=== PATIENT | female | born 1960 | race Caucasian/White ===

== ENCOUNTER → 2019-08-02 06:38 | Outpatient (CLI) | payer BC ==
[~2019-08-02 06:38] MED LIST: CO Q-10100 MG PO; PAXIL10 MG PO; VIC-FORTE CAPSUL1 MG PO
== END | disposition home or self-care (01) ==
LOC: D.OPS 06:38
PROVIDERS: ATTEND Family Medicine
DX: M21.072 Valgus deformity, not elsewhere classified, left ankle (principal); M21.42 Flat foot [pes planus] (acquired), left foot; M21.172 Varus deformity, not elsewhere classified, left ankle

== ENCOUNTER 2019-08-02 06:56 | Day surgery (SDC) | payer BC ==
[~2019-08-02] VITALS: Ht 172.7 cm; Wt 81.6 kg
--- NOTE | ~2019-08-02 | OP ---
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 PROCEDURES: 1. Left gastroc recession. 2. Left Harris calcaneal osteotomy. 3. Left Cotton osteotomy. ANESTHESIA: General with preoperative popliteal block per the anesthesia department. HEMOSTASIS: Left thigh tourniquet at 350 mmHg. PREOPERATIVE DETAILS: The patient was taken to the OR and placed on the operating table in a supine position followed by induction of general anesthesia. The left extremity was then prepped and draped in usual aseptic technique followed by exsanguination and inflation of tourniquet. PROCEDURE #1: Left gastroc recession: With the hip flexed and the knee extended, the left leg was elevated, giving access to the posterior aspect of the leg with the foot held in dorsiflexion. A 3 cm linear incision was made over the gastroc aponeurosis. The incision was deepened down bluntly through subcutaneous tissue being sure to avoid the sural nerve and vein. The peritenon was then exposed, linear incision was made and the aponeurosis was exposed. With the foot held in dorsiflexion, a V cut was made through the aponeurosis allowing adequate ankle dorsiflexion. Wound was flushed. The soft tissue was reapproximated and the skin was closed with skin shila. PROCEDURE #2: Left calcaneal Harris osteotomy. A 15-blade was used to create a 3 cm linear incision over the lateral wall of the anterior process of the calcaneus. The incision was deepened down through subcutaneous tissue. Dissection carried down to the peroneal tendons, which were freed and retracted in the wound. The lateral wall of the calcaneus was then exposed. A sagittal saw was used to create an osteotomy from lateral to medial. The osteotomy was distracted with Osteotome and mallet and sizers were then placed to determine the proper size of the bone graft. Sizer was deemed necessary to reduce the transverse plane dominant flat foot or calcaneal valgus, thus a 10 cm bone graft was placed in the osteotomy noting excellent realignment of the rearfoot. C-arm was used to verify good placement as well as alignment. The deep tissue was reapproximated with 2-0 Vicryl, the subcutaneous tissue with 4-0 Rapide and the skin was closed with 4-0 Rapide in a subcuticular technique followed by Dermabond. PROCEDURE #3: Left Cotton osteotomy. OPERATIVE REPORT [id number] BECCA GOLDBERG A 2 cm linear incision was made over the dorsal aspect of the medial cuneiform. The incision deepened down through subcutaneous tissue being sure to avoid the superficial nerves. Dissection was carried down to the periosteum where a linear periosteal incision was made. The periosteum was freed giving access to the dorsal aspect of the medial cuneiform. A sagittal saw was used to create an osteotomy from dorsal to plantar, not going through the plantar cortex. The osteotomy was distracted, and utilizing the trial sizers, it was deemed necessary that a size 6 bone graft be utilized. The bone graft was placed in the osteotomy giving us excellent reduction of the forefoot varus. The wound was flushed. The deep tissue was reapproximated with 2-0 Vicryl, the subcutaneous tissue with 4-0 Rapide and the skin was closed with 4-0 Rapide in a subcuticular technique followed by Dermabond. Adaptic, 4 x 4 and Conform were used to dress the wound followed by application of a modified Santana compression dressing. Tourniquet was deflated. POSTOPERATIVE DETAILS: The patient tolerated the procedure well and left the OR with vital signs stable and vascular status at preoperative levels. The patient was transported to recovery per anesthesia in stable condition. TRANSINT:[id number] Voice Confirmation ID: [id number] DOCUMENT ID: [id number] [address] DPM CC: [id number] DICTATION DATE: 08/02/19 1145 CLUB WAITER/WAITRESS: 08/02/19 2144 [facility] 08/02/19 [id number] [place] [address]
[2019-08-02 07:36] VITALS: BP 127/75; Ht 172.7 cm; Wt 81.6 kg
--- NOTE | 2019-08-02 13:16 | NUR ---
1250 IV REMOVED AND PRESSURE HELD
== END 2019-08-02 13:30 | disposition home or self-care (01) ==
LOC: D.OPS 06:56 → D.PAN 08:45 → D.OPS 08:45
PROVIDERS: ATTEND Podiatrist
DX: M21.42 Flat foot [pes planus] (acquired), left foot (principal); M21.072 Valgus deformity, not elsewhere classified, left ankle; M21.172 Varus deformity, not elsewhere classified, left ankle